=== PATIENT | female | born 1960 | race Caucasian/White ===

== ENCOUNTER 2019-12-12 22:30 | Emergency (ER) | payer OTHER, SELFPAY ==
[2019-12-12 22:52] VITALS: BP 110/75; PULSE 122; RESP 18; TEMP 36.7; O2SAT 97; BMI 25.4
--- NOTE | 2019-12-12 23:02 | ECG_ITS ---
Measurements Intervals [place] Rate: 123 P: 60 KS: 112 QRS: 68 QRSD: 86 T: -6 QT: 289 QTc: 415 SINUS TACHYCARDIA WITH SHORT KS INTERVAL NONSPECIFIC T-WAVE ABNORMALITY No previous ECG available for comparison Electronically Signed On 12-13-2019 8:21:32 CDT by Brice Rolon M.D. [email or web address]
--- NOTE | 2019-12-12 23:07 | W.ED.NAVMDI ---
HPI - Nausea/Vomiting/Diarrhea General: Chief complaint: Nausea/Vomiting/Diarrhea Stated complaint: n/v Time Seen by Provider: 12/12/19 22:59 History of Present Illness: HPI Narrative: Yary is a nice 59-year-old female who comes in complaining of vomiting for the past 3 days. She states that she cannot keep anything down. She denies any diarrhea but is chronically constipated. She stated she had a firm bowel movement yesterday which was normal for her. She had no blood in her stools or melena. She denies any hematochezia. She is had no fevers or chills. She denies any dysuria, urinary frequency or urgency but her urine output has been decreased. She denies any chest pain or shortness of breath but has had some dull low back pain. She is is unaware of anything else that makes her symptoms better or worse other than trying to eat or drink brings all the nausea and vomiting. She is unaware of any ill contacts with similar symptoms. The abdominal pain she describes as just being sore in her abdomen from vomiting and some cramping. Associated nausea: Yes Associated symtoms: Reports nausea; Denies altered mental status, change in vision, chest pain, diaphoresis, dizziness, dysuria, fatigue, headache(s), malaise, palpitations or syncope Review of Systems General: Reports: other (negative unless marked) Const: Reports: body aches; Denies: fever, chills, fatigue, malaise or diaphoresis Eyes: Denies: change in vision or blurry vision ENMT: Denies: throat pain, painful swallowing, hoarseness, ear pain, ear discharge, Change in hearing or nasal discharge Card: Denies: chest pain, palpitations, irregular heart rhythm, syncope, pre-syncope, shortness of breath on exertion or shortness of breath when lying down Resp: Denies: shortness of breath, productive cough, non-productive cough, wheezing, coughing up blood or chest congestion GI: Reports: abdominal pain, nausea, vomiting and constipation; Denies: vomiting blood, coffee grounds in vomit, diarrhea, cramping, blood in stool or black tarry stool : Denies: flank pain, painful urination, urinary frequency, urinary urgency, decreased urine ouput, urinary incontinence or blood in urine Musc: Denies: neck pain, back pain, extremity pain, extremity swelling, joint pain, joint swelling, joint warmth or joint stiffness Skin/Breast: Denies: rash, skin tenderness or yellow skin Neuro: Denies: headache, numbness in extremities, weakness in extremities, changes in sensation, lack of coordination, difficulty walking, dizziness, vertigo or confusion Endo: Denies: excessive thirst, tired all the time, cold intolerance, excessive sweating, flushing or hot flashes David/Lymph: Denies: easy bruising, easy bleeding, petechiae or enlarged lymph nodes All/Imm: Denies: hives, throat swelling, tongue swelling, facial swelling or acute wheezing PFSH ED PFSH: Medical History (Updated 12/13/19 @ 01:52 by Jamee Molina) Diabetes mellitus Social History Smoking and tobacco status: never smoked Physical Exam Const: COMMON NORMALS: no apparent distress, oriented x3, no limitations, healthy appearing and well nourished EXAM LIMITATIONS: no altered mental status GENERAL APPEARANCE: cooperative, well kempt and well developed ORIENTATION/CONSCIOUSNESS: Yes awake HENMT: COMMON NORMALS: normocephalic, head/scalp atraumatic, hearing grossly normal bilaterally, external ears normal, EAC's normal, external nose normal and moist oral mucous membranes HEAD & SCALP: normal to inspection, normocephalic and atraumatic FACE & SINUS: normal facial exam and face symmetric NOSE: external nose normal and nares normal EXTERNAL EAR: Yes external ears normal EXTERNAL AUDITORY CANAL: EAC's normal MOUTH: oral and palatal mucosa normal and tongue normal Eye: COMMON NORMALS: PERRL, EOMs intact bilaterally, conjunctivae normal and no scleral icterus GENERAL EYE: normal appearance of both eyes and normal light reflex CONJUNCTIVA: Yes conjunctivae normal SCLERA: sclerae normal CORNEA: Yes corneas normal PUPIL: Yes PERRL DIRECT OPHTHALMOSCOPY: Yes normal light reflex Neck/C-Spine: COMMON NORMALS: full ROM, no lymphadenopathy, supple, no meningeal signs and no JVD GENERAL: Yes normal visual inspection and Yes trachea midline CERVICAL SPINE: Yes cervical ROM normal Chest: COMMONS NORMALS: inspection of chest normal and palpation of chest normal Resp: COMMON NORMALS: normal respiratory effort, no retractions, no use of accessory muscles and clear to auscultation bilaterally EFFORT & INSPECTION: Yes able to speak in complete sentences AUSCULTATION: clear to auscultation bilaterally Cardio: COMMON NORMALS: no JVD, regular rate, regular rhythm, S1 normal heart sound, S2 normal heart sound, no gallops, no clicks, no murmurs and no rub JUGULAR VENOUS DISTENTION: no JVD RATE: regular rate RHYTHM: regular rhythm HEART SOUNDS: S1 normal and S2 normal GI: COMMON NORMALS: soft to palpation, no hepatosplenomegaly and no masses PALPATION: Yes soft, Yes tender (mild diffusly), No guarding, No rigid and Yes no hepatosplenomegaly : COMMON NORMALS: Yes no CVA tenderness BLADDER/KIDNEY EXAM: Yes no CVA tenderness Back/Pelvis: COMMON NORMALS: no CVA tenderness, thoracic and lumbar spine normal to inspection, no thoracic nor lumbar tenderness and thoraco-lumbar ROM normal Extremity: COMMON NORMALS: normal to inspection, full ROM, normal capillary refill, no joint enlargement, no clubbing, cyanosis or edema and no calf tenderness Neuro: COMMON NORMALS: oriented x3, CN's II-XII intact bilaterally, moves all extremities, no focal motor deficits and no sensory deficits noted MENINGEAL SIGNS: Yes no meningeal signs Psych: COMMON NORMALS: mental status grossly normal, thought process normal, cooperative, affect normal, speech normal and activity/motor behavior normal APPEARANCE: Yes well kempt SPEECH: Yes normal speech THOUGHT PROCESS: normal thought process Skin: COMMON NORMALS: no rashes or lesions noted, skin turgor normal, no jaundice, no petechiae and no mottling GENERAL SKIN EXAM: no rashes or lesions noted and turgor normal Course Vital Signs: Vital signs: Vital Signs Temperature 98.1 F 12/12/19 22:52 Pulse Rate 111 H 12/13/19 01:40 Respiratory Rate 25 H 12/13/19 01:40 Blood Pressure 100/61 12/13/19 01:40 Pulse Oximetry 95 12/12/19 23:54 MDM - Nausea/Vomiting/Diarrhea MDM Narrative: Medical decision making narrative: The case was reviewed with Dr. Cassidy, without Dr. Santos being available he is uncomfortable keeping the patient here. We do not have urology coverage this weekend. I reviewed the case in full with Dr. Velasco at [facility] and he will accept the patient in transfer. He agreed with the current antibiotic coverage and understood the patient was on pressors at this time. The patient is a atypical presentation for pyelonephritis but likely due to her diabetes this was not noticed. The patient is currently improved and her vomiting has stopped. No air ambulance services available for transfers the patient will be transferred is life threat emergent to [facility]. Lab Data: Attestation: I reviewed the patient's lab results. Labs: Lab Results 12/12/19 12/12/19 12/12/19 Range/Units 22:43 22:43 22:43 WBC 15.1 H (4.0-10.0) 10^3/ uL RBC 4.80 (4.1-5.3) 10^6/u L Hgb 15.8 H (11.5-15.3) g/dL Hct 44.5 (37.0-47.0) % MCV 92.7 (81-99) fL MCH 32.9 (28.0-34.0) pg MCHC 35.5 (30.0-36.0) g/dL RDW 12.5 (12.1-15.1) % Plt Count 75 L (130-400) 10^3/c mm MPV 12.4 H (7.4-10.4) fL Neut % (Auto) 93.1 % Lymph % (Auto) 2.8 % Gillespie % (Auto) 2.3 % Eos % (Auto) 0.7 % Baso % (Auto) 0.5 % Neut # (Auto) 14.1 H (1.8-7.7) 10^3/u L Lymph # (Auto) 0.4 L (0.8-4.8) 10^3/u L Gillespie # (Auto) 0.3 (0.2-0.9) 10^3/u L Eos # (Auto) 0.1 (0.0-0.8) 10^3/u L Baso # (Auto) 0.1 (0.0-0.1) 10^3/u L Nucleated RBC % (a uto) 0 % Nucleated RBCs # 0.0 /100WBC Specimen Type Sample Site ABG pH (7.35-7.45) ABG pCO2 (35-45) mmHg ABG pO2 (80.0-100.0) mmH g ABG HCO3 (22-26) mmol/L ABG Base Excess (-2.0-2.0) mmol/ L [place] Test Hematocrit (37-47) % O2 Delivery Device FiO2 % Data Coder Operator ID Sodium 122 L (136-145) mmol/L Potassium 4.7 (3.5-5.1) mmol/L Chloride 79 L (98-107) mmol/L Carbon Dioxide 23 (22-29) mmol/L Anion Gap 24.7 H (5-19) BUN 62 H (6-20) mg/dL Creatinine 2.7 H (0.5-0.9) mg/dL GFR Calculation 18.0 L (90-130) mL/min Glucose 460 H (65-115) mg/dL POC Glucose (70-110) mg/dL Calculated Osmolal ity 273 L (285-295) mOsm/k g Lactic Acid (0.5-2.2) mmol/L Calcium 10.0 (8.5-10.5) mg/dL Magnesium 1.4 L (1.7-2.3) mg/dL Total Bilirubin 0.8 (0.15-1.2) mg/dL AST 42 H (0-32) U/L ALT 34 H (0-33) U/L Alkaline Phosphata se 147 H (35-105) IU/L Troponin T Baselin e 33 H (0-10) ng/mL Troponin T [address] [place] (0-10) ng/mL Delta Troponin T (0-10) ABS# Total Protein 7.5 (6.6-8.7) g/dL Albumin 3.1 L (3.5-5.2) g/dL Globulin 4.4 (1.3-4.6) g/dL Lipase 7 L (13-60) U/L Urine Color (Yellow) Urine Appearance (CLEAR) Urine pH (5-7) Ur Specific Gravit y (1.005-1.030) Urine Protein (Negative) Urine Glucose (UA) (Normal) Urine Ketones (Negative) Urine Blood (Negative) Urine Nitrate (Negative) Urine Bilirubin (NEGATIVE) Urine Urobilinogen (Negative) mg/dL Ur Leukocyte Mora ase (Negative) Urine RBC (0-2) /hpf Urine WBC (0-5) /hpf Ur Squamous Epith Cells (0-5) Urine Bacteria (NONE) Serum Ketones (Negative) H. pylori IgG Anti body (Negative) 12/12/19 12/12/19 12/12/19 Range/Units 22:43 22:43 23:10 WBC (4.0-10.0) 10^3/ uL RBC (4.1-5.3) 10^6/u L Hgb (11.5-15.3) g/dL Hct (37.0-47.0) % MCV (81-99) fL MCH (28.0-34.0) pg MCHC (30.0-36.0) g/dL RDW (12.1-15.1) % Plt Count (130-400) 10^3/c mm MPV (7.4-10.4) fL Neut % (Auto) % Lymph % (Auto) % Gillespie % (Auto) % Eos % (Auto) % Baso % (Auto) % Neut # (Auto) (1.8-7.7) 10^3/u L Lymph # (Auto) (0.8-4.8) 10^3/u L Gillespie # (Auto) (0.2-0.9) 10^3/u L Eos # (Auto) (0.0-0.8) 10^3/u L Baso # (Auto) (0.0-0.1) 10^3/u L Nucleated RBC % (a uto) % Nucleated RBCs # /100WBC Specimen Type Sample Site ABG pH (7.35-7.45) ABG pCO2 (35-45) mmHg ABG pO2 (80.0-100.0) mmH g ABG HCO3 (22-26) mmol/L ABG Base Excess (-2.0-2.0) mmol/ L [place] Test Hematocrit (37-47) % O2 Delivery Device FiO2 % Data Coder Operator ID Sodium (136-145) mmol/L Potassium (3.5-5.1) mmol/L Chloride (98-107) mmol/L Carbon Dioxide (22-29) mmol/L Anion Gap (5-19) BUN (6-20) mg/dL Creatinine (0.5-0.9) mg/dL GFR Calculation (90-130) mL/min Glucose (65-115) mg/dL POC Glucose (70-110) mg/dL Calculated Osmolal ity (285-295) mOsm/k g Lactic Acid (0.5-2.2) mmol/L Calcium (8.5-10.5) mg/dL Magnesium (1.7-2.3) mg/dL Total Bilirubin (0.15-1.2) mg/dL AST (0-32) U/L ALT (0-33) U/L Alkaline Phosphata se (35-105) IU/L Troponin T Baselin e (0-10) ng/mL Troponin T [address] [place] (0-10) ng/mL Delta Troponin T (0-10) ABS# Total Protein (6.6-8.7) g/dL Albumin (3.5-5.2) g/dL Globulin (1.3-4.6) g/dL Lipase (13-60) U/L Urine Color Red (Yellow) Urine Appearance Clear (CLEAR) Urine pH 7 (5-7) Ur Specific Gravit y 1.015 (1.005-1.030) Urine Protein 2+ H (Negative) Urine Glucose (UA) Norm (Normal) Urine Ketones Negative (Negative) Urine Blood 3+ H (Negative) Urine Nitrate Negative (Negative) Urine Bilirubin Neg (NEGATIVE) Urine Urobilinogen Norm (Negative) mg/dL Ur Leukocyte Mora ase 2+ H (Negative) Urine RBC 80-100 H (0-2) /hpf Urine WBC >100 H (0-5) /hpf Ur Squamous Epith Cells 10-15 H (0-5) Urine Bacteria 4+ H (NONE) Serum Ketones Negative (Negative) H. pylori IgG Anti body Negative (Negative) 12/12/19 12/12/19 12/13/19 Range/Units 23:35 23:51 00:37 WBC (4.0-10.0) 10^3/ uL RBC (4.1-5.3) 10^6/u L Hgb (11.5-15.3) g/dL Hct (37.0-47.0) % MCV (81-99) fL MCH (28.0-34.0) pg MCHC (30.0-36.0) g/dL RDW (12.1-15.1) % Plt Count (130-400) 10^3/c mm MPV (7.4-10.4) fL Neut % (Auto) % Lymph % (Auto) % Gillespie % (Auto) % Eos % (Auto) % Baso % (Auto) % Neut # (Auto) (1.8-7.7) 10^3/u L Lymph # (Auto) (0.8-4.8) 10^3/u L Gillespie # (Auto) (0.2-0.9) 10^3/u L Eos # (Auto) (0.0-0.8) 10^3/u L Baso # (Auto) (0.0-0.1) 10^3/u L Nucleated RBC % (a uto) % Nucleated RBCs # /100WBC Specimen Type Arterial Sample Site Radial, right ABG pH 7.42 (7.35-7.45) ABG pCO2 34.5 L (35-45) mmHg ABG pO2 66.3 L (80.0-100.0) mmH g ABG HCO3 22.3 (22-26) mmol/L ABG Base Excess -1.5 (-2.0-2.0) mmol/ L [place] Test Pos Hematocrit 46.4 (37-47) % O2 Delivery Device None FiO2 21.0 % Data Coder Operator ID [id number] Sodium (136-145) mmol/L Potassium (3.5-5.1) mmol/L Chloride (98-107) mmol/L Carbon Dioxide (22-29) mmol/L Anion Gap (5-19) BUN (6-20) mg/dL Creatinine (0.5-0.9) mg/dL GFR Calculation (90-130) mL/min Glucose (65-115) mg/dL POC Glucose (70-110) mg/dL Calculated Osmolal ity (285-295) mOsm/k g Lactic Acid 2.9 H (0.5-2.2) mmol/L Calcium (8.5-10.5) mg/dL Magnesium (1.7-2.3) mg/dL Total Bilirubin (0.15-1.2) mg/dL AST (0-32) U/L ALT (0-33) U/L Alkaline Phosphata se (35-105) IU/L Troponin T Baselin e (0-10) ng/mL Troponin T [address] [place] [place] (0-10) ng/mL Delta Troponin T (0-10) ABS# Total Protein (6.6-8.7) g/dL Albumin (3.5-5.2) g/dL Globulin (1.3-4.6) g/dL Lipase (13-60) U/L Urine Color Brown (Yellow) Urine Appearance Cloudy (CLEAR) Urine pH 6.5 (5-7) Ur Specific Gravit y 1.015 (1.005-1.030) Urine Protein 3+ H (Negative) Urine Glucose (UA) Trace H (Normal) Urine Ketones Negative (Negative) Urine Blood 3+ H (Negative) Urine Nitrate Negative (Negative) Urine Bilirubin Neg (NEGATIVE) Urine Urobilinogen 1 H (Negative) mg/dL Ur Leukocyte Mora ase 2+ H (Negative) Urine RBC 80-100 H (0-2) /hpf Urine WBC >100 H (0-5) /hpf Ur Squamous Epith Cells 0-4 H (0-5) Urine Bacteria 4+ H (NONE) Serum Ketones (Negative) H. pylori IgG Anti body (Negative) 12/13/19 12/13/19 Range/Units 00:53 01:07 WBC (4.0-10.0) 10^3/ uL RBC (4.1-5.3) 10^6/u L Hgb (11.5-15.3) g/dL Hct (37.0-47.0) % MCV (81-99) fL MCH (28.0-34.0) pg MCHC (30.0-36.0) g/dL RDW (12.1-15.1) % Plt Count (130-400) 10^3/c mm MPV (7.4-10.4) fL Neut % (Auto) % Lymph % (Auto) % Gillespie % (Auto) % Eos % (Auto) % Baso % (Auto) % Neut # (Auto) (1.8-7.7) 10^3/u L Lymph # (Auto) (0.8-4.8) 10^3/u L Gillespie # (Auto) (0.2-0.9) 10^3/u L Eos # (Auto) (0.0-0.8) 10^3/u L Baso # (Auto) (0.0-0.1) 10^3/u L Nucleated RBC % (a uto) % Nucleated RBCs # /100WBC Specimen Type Sample Site ABG pH (7.35-7.45) ABG pCO2 (35-45) mmHg ABG pO2 (80.0-100.0) mmH g ABG HCO3 (22-26) mmol/L ABG Base Excess (-2.0-2.0) mmol/ L [place] Test Hematocrit (37-47) % O2 Delivery Device FiO2 % Data Coder Operator ID Sodium (136-145) mmol/L Potassium (3.5-5.1) mmol/L Chloride (98-107) mmol/L Carbon Dioxide (22-29) mmol/L Anion Gap (5-19) BUN (6-20) mg/dL Creatinine (0.5-0.9) mg/dL GFR Calculation (90-130) mL/min Glucose (65-115) mg/dL POC Glucose 391 (70-110) mg/dL Calculated Osmolal ity (285-295) mOsm/k g Lactic Acid (0.5-2.2) mmol/L Calcium (8.5-10.5) mg/dL Magnesium (1.7-2.3) mg/dL Total Bilirubin (0.15-1.2) mg/dL AST (0-32) U/L ALT (0-33) U/L Alkaline Phosphata se (35-105) IU/L Troponin T Baselin e (0-10) ng/mL Troponin T [address] [place] [place] 27.78 H (0-10) ng/mL Delta Troponin T -5.22 L (0-10) ABS# Total Protein (6.6-8.7) g/dL Albumin (3.5-5.2) g/dL Globulin (1.3-4.6) g/dL Lipase (13-60) U/L Urine Color (Yellow) Urine Appearance (CLEAR) Urine pH (5-7) Ur Specific Gravit y (1.005-1.030) Urine Protein (Negative) Urine Glucose (UA) (Normal) Urine Ketones (Negative) Urine Blood (Negative) Urine Nitrate (Negative) Urine Bilirubin (NEGATIVE) Urine Urobilinogen (Negative) mg/dL Ur Leukocyte Mora ase (Negative) Urine RBC (0-2) /hpf Urine WBC (0-5) /hpf Ur Squamous Epith Cells (0-5) Urine Bacteria (NONE) Serum Ketones (Negative) H. pylori IgG Anti body (Negative) Imaging Data^: CT Abd/Pel: Radiologist's impression: [address] [place] [address] CT Scan Report Signed Patient: Yary Denis Unit #: [id number] : 1960 Age/Sex: 59 / F ADM Date: 12/12/19 Loc: ER Room/Bed: Attending Dr: Ordering Provider/Ordering MD: Jamee Molina DO Date of Service: 12/12/19 Procedure(s): CT kidney stone 50761 Accession Number(s): [id number] Report Number: [id number] PROCEDURE INFORMATION: Exam: CT Abdomen And Pelvis Without Contrast Exam date and time: 12/12/2019 12:07 AM Age: 59 years old Clinical indication: Abdominal pain; Localized; Lower TECHNIQUE: Imaging protocol: Computed tomography of the abdomen and pelvis without contrast. Total DLP: 1457.12 mGy-cm Radiation optimization: All CT scans at this facility use at least one of these dose optimization techniques: automated exposure control; mA and/or kV adjustment per patient size (includes targeted exams where dose is matched to clinical indication); or iterative reconstruction. COMPARISON: No relevant prior studies available. FINDINGS: Lungs: There are a few foci of linear scarring or atelectasis in the right lower lobe. Liver: Unremarkable. Gallbladder and bile ducts: Normal. No calcified stones. No ductal dilation. Pancreas: Normal. No ductal dilation. Spleen: Incidental splenule near the spleen the spleen is upper limits of normal measuring up to 11.5 cm. Adrenals: The left adrenal gland is slightly enlarged possibly due to an underlying sub cm adenoma. Follow-up should not be needed Kidneys and ureters: The left kidney is severely abnormal and is diffusely filled with extensive gas and necrotic tissue. Gas is also present in the renal collecting system but there is no hydronephrosis. There is surrounding fatty stranding but no abscess . No stones in the kidneys or ureter. The right kidney is normal and without obstruction. Stomach and bowel: Unremarkable. No obstruction. No mucosal thickening. Appendix: No evidence of appendicitis. Intraperitoneal space: Unremarkable. No free air. No significant fluid collection. Vasculature: Unremarkable. No abdominal aortic aneurysm. Lymph nodes: Numerous incidental calcified nodes in the mediastinum. Retroperitoneal nodes are small. Bladder: The urinary bladder is decompressed by catheter. Reproductive: The uterus is atrophic. Bones/joints: Multilevel chronic disc spur complexes in the lumbar spine produce stenosis at multiple levels. Soft tissues: Unremarkable. CT/CT kidney stone 53369 IMPRESSION: 1. Severe left renal necrotizing pyelonephritis with extensive parenchymal necrosis. The kidney is likely nonfunctional. No hydronephrosis or abscess. 2. Normal right kidney. 3. Other chronic or incidental findings as described. The findings were verbally communicated via telephone conference with Jamee Molina at 12:54 AM CDT on 12/13/2019. The findings were acknowledged and understood. The Radiation Dose CTDIVOL = (mGy): DLP = 1457.12 (mGy-cm) Dictated By: Darryl Moon MD Signed By: Darryl Moon MD Signed Date/Time: 12/13/1956 DD/ EKG Data^: EKG 1: Attestation: I personally reviewed and interpreted this EKG as follows: EKG interpretation date: 12/12/19 EKG interpretation time: 23:24 Interpretation: Normal sinus rhythm at 123 beats a minute, no acute ST-T wave changes. Short IA interval, normal QTC. Discharge Plan Discharge Patient Disposition: Xfer Short-Term Hosp Clinical Impression: Acute necrotizing pyelonephritis, Sepsis Condition: Stable Referrals: Bull Montemayor [Primary Care Provider] - Coding Level of Care Code ED Psychopaedic Nurse for Chg Fwd Exam Comprehensive
[2019-12-12 23:12] VITALS: RESP 18
[2019-12-12] MEDS: ondansetron 2 mg/ML SDV 2 mL 4 MG IVP ×2 (23:12→23:54)
[2019-12-12] MEDS: morphine 4 mg/mL SDV 1 mL IVP ×2 (23:12→23:54)
[2019-12-12] MEDS: sodium chloride 0.9% 1,000 ML 999 ML IV (23:14)
[2019-12-12 23:22] VITALS: PULSE 117; RESP 34; O2SAT 95
[2019-12-12 23:22] LABS: Basophils # 0.1 10^3/uL (0.0-0.1); Basophils % 0.5 %; Eosinophils # 0.1 10^3/uL (0.0-0.8); Eosinophils % 0.7 %; Hematocrit 44.5 % (37.0-47.0); Hemoglobin 15.8 g/dL (11.5-15.3); Lymphocytes # 0.4 10^3/uL (0.8-4.8); Lymphocytes % 2.8 %; Mean Corpuscular HGB Conc 35.5 g/dL (30.0-36.0); Mean Corpuscular Hemoglobin 32.9 pg (28.0-34.0); Mean Corpuscular Volume 92.7 fL (81-99); Mean Platelet Volume 12.4 fL (7.4-10.4); Monocytes # 0.3 10^3/uL (0.2-0.9); Monocytes % 2.3 %; Neutrophils # 14.1 10^3/uL (1.8-7.7); Neutrophils % 93.1 %; Nucleated Red Blood Cells % 0 %; Platelet Count 75 10^3/cmm (130-400); Red Cell Distribution Width 12.5 % (12.1-15.1); White Blood Count 15.1 10^3/uL (4.0-10.0)
--- NOTE | 2019-12-12 23:25 | CTR_ITS ---
PROCEDURE INFORMATION: Exam: CT Abdomen And Pelvis Without Contrast Exam date and time: 12/12/2019 12:07 AM Age: 59 years old Clinical indication: Abdominal pain; Localized; Lower TECHNIQUE: Imaging protocol: Computed tomography of the abdomen and pelvis without contrast. Total DLP: 1457.12 mGy-cm Radiation optimization: All CT scans at this facility use at least one of these dose optimization techniques: automated exposure control; mA and/or kV adjustment per patient size (includes targeted exams where dose is matched to clinical indication); or iterative reconstruction. COMPARISON: No relevant prior studies available. FINDINGS: Lungs: There are a few foci of linear scarring or atelectasis in the right lower lobe. Liver: Unremarkable. Gallbladder and bile ducts: Normal. No calcified stones. No ductal dilation. Pancreas: Normal. No ductal dilation. Spleen: Incidental splenule near the spleen the spleen is upper limits of normal measuring up to 11.5 cm. Adrenals: The left adrenal gland is slightly enlarged possibly due to an underlying sub cm adenoma. Follow-up should not be needed Kidneys and ureters: The left kidney is severely abnormal and is diffusely filled with extensive gas and necrotic tissue. Gas is also present in the renal collecting system but there is no hydronephrosis. There is surrounding fatty stranding but no abscess . No stones in the kidneys or ureter. The right kidney is normal and without obstruction. Stomach and bowel: Unremarkable. No obstruction. No mucosal thickening. Appendix: No evidence of appendicitis. Intraperitoneal space: Unremarkable. No free air. No significant fluid collection. Vasculature: Unremarkable. No abdominal aortic aneurysm. Lymph nodes: Numerous incidental calcified nodes in the mediastinum. Retroperitoneal nodes are small. Bladder: The urinary bladder is decompressed by catheter. Reproductive: The uterus is atrophic. Bones/joints: Multilevel chronic disc spur complexes in the lumbar spine produce stenosis at multiple levels. Soft tissues: Unremarkable. CT/CT kidney stone [id number] IMPRESSION: 1. Severe left renal necrotizing pyelonephritis with extensive parenchymal necrosis. The kidney is likely nonfunctional. No hydronephrosis or abscess. 2. Normal right kidney. 3. Other chronic or incidental findings as described. The findings were verbally communicated via telephone conference with Jamee Molina at 12:54 AM CDT on 12/13/2019. The findings were acknowledged and understood. The Radiation Dose CTDIVOL = (mGy): DLP = 1457.12 (mGy-cm)
[2019-12-12 23:30] VITALS: BP 94/46; PULSE 113; RESP 35
[2019-12-12 23:35] LABS: Ketone (Acetest) Serum Negative (Negative)
[2019-12-12 23:41] LABS: H. Pylori IgG Antibody Negative (Negative)
[2019-12-12 23:44] LABS: ABG PCO2 34.5 mmHg (35-45); ABG PH Result 7.42 (7.35-7.45); Arterial Blood Gas Hematocrit 46.4 % (37-47); Base Excess ABG -1.5 mmol/L (-2.0-2.0); Blood Gas Allen Test Pos; Blood Gas Sample Site Radial, right; Blood Gas Sample Type Arterial; HCO3 ABG 22.3 mmol/L (22-26); PO2 ABG 66.3 mmHg (80.0-100.0)
[2019-12-12 23:46] LABS: Alanine Aminotransferase 34 U/L (0-33); Albumin Level 3.1 g/dL (3.5-5.2); Alkaline Phosphatase 147 IU/L (35-105); Anion Gap 24.7 (5-19); Aspartate Amino Transferase 42 U/L (0-32); Blood Urea Nitrogen 62 mg/dL (6-20); Carbon Dioxide 23 mmol/L (22-29); Chloride 79 mmol/L (98-107); Globulin 4.4 g/dL (1.3-4.6); Glucose 460 mg/dL (65-115); Lipase 7 U/L (13-60); Magnesium 1.4 mg/dL (1.7-2.3); Osmolality Calculated 273 mOsm/kg (285-295); Potassium 4.7 mmol/L (3.5-5.1); Sodium 122 mmol/L (136-145); Total Bilirubin 0.8 mg/dL (0.15-1.2); Total Protein 7.5 g/dL (6.6-8.7)
[2019-12-12 23:49] LABS: Blood Urine 3+ (Negative); Leukocyte Esterase Urine 2+ (Negative); Protein Urine 2+ (Negative); RBC Urine 80-100 /hpf (0-2); Specific Gravity, Urine 1.015 (1.005-1.030); Urine Appearance Clear (CLEAR); Urine Color Red (Yellow); WBC Urine >100 /hpf (0-5); pH Urine 7 (5-7)
[2019-12-12 23:50] LABS: Troponin(5th) Baseline 33 ng/mL (0-10)
[2019-12-12 23:50] LABS: Add Urine Culture? Yes; Bacteria Urine 4+; Bilirubin Urine Neg (NEGATIVE); Glucose Urine UA Norm (Normal); Ketones Urine Negative (Negative); Nitrate Urine Negative (Negative); Urobilinogen Urine Norm (Negative)
[2019-12-12 23:54] VITALS: RESP 20; O2SAT 95
[2019-12-13] VITALS (30 sets, daily range): BP systolic 78–107; BP diastolic 41–68; PULSE 0–122; RESP 17–35; O2SAT 98
[2019-12-13] MEDS: sodium chloride 0.9% 1,000 ML 999 ML IV
[2019-12-13 00:07] LABS: Slide Review Slide Review Perform
[2019-12-13 00:22] LABS: Lactic Sepsis W/Reflex 2.9 mmol/L (0.5-2.2)
[2019-12-13] MEDS: cefTRIAXone 1,000 MG in sodium chloride 0.9% (plus) 50 ML 100 MG IV ×2 (00:42→01:40)
[2019-12-13] MEDS: magnesium sulfate premix 2 GM/50 ML PIGGYBACK IV (00:47)
--- NOTE | 2019-12-13 00:53 | PC.NURSE ---
Finger Stick Accu Check Blood Glucose 391
[2019-12-13 00:58] LABS: Glucose Point of Care 391 mg/dL (70-110)
[2019-12-13 01:06] LABS: Specific Gravity, Urine 1.015 (1.005-1.030); Urine Appearance Cloudy (CLEAR); Urine Color Brown (Yellow); pH Urine 6.5 (5-7)
[2019-12-13 01:07] LABS: Add Urine Culture? Yes; Bacteria Urine 4+; Bilirubin Urine Neg (NEGATIVE); Blood Urine 3+ (Negative); Glucose Urine UA Trace (Normal); Ketones Urine Negative (Negative); Leukocyte Esterase Urine 2+ (Negative); Nitrate Urine Negative (Negative); Protein Urine 3+ (Negative); RBC Urine 80-100 /hpf (0-2); Squamous Epithelial Cell Urine 0-4 (0-5); Urobilinogen Urine 1 mg/dL (Negative); WBC Urine >100 /hpf (0-5)
[2019-12-13] MEDS: promethazine 25 mg/mL SDV 1 mL IM (01:30)
[2019-12-13 01:45] LABS: Reflex Lactate Order REFLEX LACTIC ORDERD
[2019-12-13 01:47] LABS: Troponin 5 2HR 27.78 ng/mL (0-10)
[2019-12-13 01:50] LABS: Troponin 5 2HR Delta -5.22 ABS# (0-10)
[2019-12-13] MEDS: sodium chloride 0.9% 1,000 ML 150 ML IV (02:07)
[2019-12-13] MEDS: cefepime 2,000 MG in sodium chloride 0.9% (plus) 50 ML 100 MG IV (02:09)
--- NOTE | 2019-12-13 19:41 | PC.NURSE ---
Positive Blood cultures, gram negative rods growing in all 4 bottle. Information relayed to CHAPIN Brian at [facility] where patient was transferred.
== END 2019-12-13 02:50 | disposition short-term general hospital (02) ==
PROVIDERS: Emergency Provider Emergency Medicine; PCP Family Medicine
DX: N10 Acute pyelonephritis (principal); A41.9 Sepsis, unspecified organism; E11.9 Type 2 diabetes mellitus without complications
CPT/HCPCS: 12345; 36416; 36600; 51702; 74176; 80053; 81001; 82009; 82803; 82962; 83605; 83690; 83735; 84484; 85025; 86677; 87040; 87077; 87086; 87186; 93005; 96360; 96361; 96365; 96366; 96367; 96368; 96372; 96374; 96375; 99284; 99285; J0692; J0696; J0743; J2270; J2405; J2550; J3475; J7030; J7050